=== PATIENT | male | born 1975 | race Caucasian/White ===

== ENCOUNTER 2023-09-16 14:22 | Outpatient (OUT) | payer OTHER, SELFPAY ==
--- NOTE | 2023-09-16 14:30 | MR_ITS ---
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 TECHNIQUE: Multiplanar, multisequential MRI images of brain and orbits were obtained without injection of contrast. FINDINGS: The cerebral sulci as well as ventricular system are appropriate for age. There is no restricted diffusion. Few hyperintensities on T2 and FLAIR images in the valdez radiata and centrum semiovale with sparing of U fibers are nonspecific, statistically most likely consistent with microvascular ischemic changes or migraine. There is no intracranial mass, mass effect, midline shift, intra or extra-axial fluid collection or large hemorrhage. Normal flow-void in the intracranial vessels is noted. No abnormality of the optic nerves, optic chiasma or extraocular muscles are likely glands is noted. The visualized portions of orbits, mastoid air cells are unremarkable. Scattered paranasal sinus disease is noted. MR/MR head/brain wo con IMPRESSION: No acute intracranial process is noted. No definite abnormality of the optic nerves is noted. Electronically authenticated by: DONG LIAO Date: 09/16/2023 17:23
--- NOTE | 2023-09-16 14:35 | MR_ITS ---
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 TECHNIQUE: Multiplanar, multisequential MRI images of brain and orbits were obtained without injection of contrast. FINDINGS: The cerebral sulci as well as ventricular system are appropriate for age. There is no restricted diffusion. Few hyperintensities on T2 and FLAIR images in the valdez radiata and centrum semiovale with sparing of U fibers are nonspecific, statistically most likely consistent with microvascular ischemic changes or migraine. There is no intracranial mass, mass effect, midline shift, intra or extra-axial fluid collection or large hemorrhage. Normal flow-void in the intracranial vessels is noted. No abnormality of the optic nerves, optic chiasma or extraocular muscles are likely glands is noted. The visualized portions of orbits, mastoid air cells are unremarkable. Scattered paranasal sinus disease is noted. MR/MR orbit wo con IMPRESSION: No acute intracranial process is noted. No definite abnormality of the optic nerves is noted. Electronically authenticated by: DONG LIAO Date: 09/16/2023 17:23
--- NOTE | 2023-09-16 14:36 | XR_ITS ---
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 VASCULATURE: No increased pulmonary vasculature. PLEURA: No pneumothorax, effusion, or pleural thickening. CARDIAC: No cardiomegaly or cardiac silhouette abnormality. MEDIASTINUM: No visible mass or adenopathy. BONES: No fracture or visible bone lesion. OTHER: Negative. XR/XR chest 2V IMPRESSION: 1. Hyperexpanded lungs. No appreciable acute cardiopulmonary process. Electronically authenticated by: MARGO SMITH Date: 09/18/2023 07:00
[2023-09-16 16:06] LABS: Basophils Absolute Auto 0.1 10^3/uL (0.0-0.1); Basophils Percent Auto 0.8 % (0.2-2.0); Eosinophils Absolute Auto 0.2 10^3/uL (0.0-0.7); Eosinophils Percent Auto 1.9 % (0.9-7.0); Hematocrit 42.9 % (42.0-54.0); Hemoglobin 14.6 g/dL (14.0-18.0); Immature Granulocytes Abs Auto 0.02 10^3/uL (0.00-0.03); Immature Granulocytes Pct Auto 0.2 % (0.0-0.5); Lymphocytes Absolute Auto 1.6 10^3/uL (1.2-3.8); Lymphocytes Percent Auto 18.8 % (20.5-60.0); Mean Corpuscular Hemoglobin 31.6 pg (25.9-34.0); Mean Corpuscular Volume 92.9 fL (80.0-94.0); Mean Platelet Volume 9.9 fL (9.5-13.5); Monocytes Absolute Auto 0.7 10^3/uL (0.3-0.8); Monocytes Percent Auto 8.1 % (1.7-12.0); Neutrophils Absolute Auto 5.8 10^3/uL (1.4-6.5); Neutrophils Percent Auto 70.2 % (43.0-75.0); Platelet Count 216 10^3/uL (150-450); Red Blood Count 4.62 10^6/uL (4.70-6.10); Red Cell Distribution Width 13.3 % (11.0-15.0); White Blood Count 8.3 10^3/uL (4.0-11.0)
[2023-09-16 16:49] LABS: Anion Gap 13.8; BUN Creatinine Ratio 19.8; Calcium 9.4 mg/dL (8.5-10.1); Carbon Dioxide 25.4 mmol/L (21.0-32.0); Chloride 103 mmol/L (98-107); Estimated GFR (African America >60 (>=60); Estimated GFR (Non-African Ame >60 (>=60); Glucose 96 mg/dL (74-106); Potassium 4.2 mmol/L (3.5-5.1); Sodium 138 mmol/L (136-145)
== END 2023-09-16 14:23 | disposition home or self-care (01) ==
LOC: MRI 14:26
PROVIDERS: PCP Family Medicine
DX: H47.213 Primary optic atrophy, bilateral (principal)
CPT/HCPCS: 36415; 70540; 70551; 71046; 80048; 82607; 82746; 84425; 85025; 86146; 86592